=== PATIENT | female | born 1950 | race Caucasian/White ===

== ENCOUNTER 2020-03-12 20:34 | Emergency (ER) | payer BC, OTHER ==
[2020-03-12 20:47] VITALS: PULSE 51; RESP 18; TEMP 97.9
[2020-03-12] MEDS ORDERED: DIPH,PERTUS(ACELL)TETVAC-LF 0.5 ML VIAL IM ONE (21:09)
--- NOTE | 2020-03-12 21:39 | ED ---
Wound/Laceration HPI - General Chief Complaint: Wound/Laceration Stated Complaint: RT foot lac Time Seen by Provider: 03/12/20 21:02 Source: patient, RN notes reviewed, old records reviewed Mode of arrival: ambulatory Limitations: no limitations - History of Present Illness Initial Comments: 7-year-old female presents return today with a laceration over the right ankle after dropping a yard pruning ramirez on the ankle and foot. Patient reports she needs an updated tetanus vaccine. She reports full range of motion and sensation of the foot and ankle. She denies any other significant complaints. - Related Data Home Medications Medication Instructions Recorded Confirmed Escitalopram [Lexapro] 20 mg PO HS 06/10/16 06/12/16 Multivitamins, Thera [Multivitamin] 1 tab PO DAILY 06/10/16 06/12/16 busPIRone HCl [Buspar] 10 mg PO BID 06/10/16 06/12/16 Bimatoprost [Lumigan .01% Ophth 1 drop BOTH EYES DAILY 06/12/16 06/12/16 Soln] Allergies Allergy/AdvReac Type Severity Reaction Status Date / Time Penicillins Allergy Rash/Hives Verified 03/12/20 20:49 Review of Systems ROS Statement: Those systems with pertinent positive or pertinent negative responses have been documented in the HPI. ROS Other: All systems not noted in ROS Statement are negative. Past Medical History Additional Past Medical History / Comment(s): migraines, constipation History of Any Multi-Drug Resistant Organisms: None Reported Past Surgical History: Appendectomy, Tonsillectomy, Tubal Ligation Additional Past Surgical History / Comment(s): skin graft, D&C Past Anesthesia/Blood Transfusion Reactions: Motion Sickness Past Psychological History: Depression Smoking Status: Never smoker Past Alcohol Use History: Occasional Past Drug Use History: None Reported - Past Family History Mother Family Medical History: Cancer General Exam - General Exam Comments Initial Comments: Alert and oriented 69-year-old female. No distress. Limitations: no limitations General appearance: alert, in no apparent distress Head exam: Present: atraumatic, normocephalic, normal inspection Eye exam: Present: normal appearance, PERRL, EOMI. Absent: scleral icterus, conjunctival injection, periorbital swelling ENT exam: Present: normal exam, mucous membranes moist Neck exam: Present: normal inspection Respiratory exam: Present: normal lung sounds bilaterally. Absent: respiratory distress, wheezes, rales, rhonchi, stridor Cardiovascular Exam: Present: regular rate, normal rhythm, normal heart sounds. Absent: systolic murmur, diastolic murmur, rubs, gallop, clicks Right Ankle exam: Present: laceration (superficial 2cm linear laceration over medial right ankle. Bleeding controlled. ). Absent: normal inspection Foot/Toe exam: Present: normal inspection, full ROM Neurovascular tendon exam: Present: no vascular compromise Gait: observed and normal Neurological exam: Present: alert, oriented X3, CN II-XII intact Psychiatric exam: Present: normal affect, normal mood Course Vital Signs 03/12/20 03/12/20 03/12/20 20:42 20:54 21:57 Temperature 97.9 F Pulse Rate 51 L Respiratory 18 Rate Blood Pressure 74/51 107/67 104/62 O2 Sat by Pulse 100 Oximetry Medical Decision Making - Medical Decision Making 61-year-old female presents with a superficial laceration over the medial right ankle after cutting it on pruning ramirez. Patient's laceration is very superficial. It was closed with iodine and closed with 2 micromed wound strips. She was given updated tetanus vaccine. She has full range motion station to the ankle. I discussed monitoring for infection and wound care instruction. . Patient is agreeable treatment plan will comply. Return parameters were discussed. Disposition Clinical Impression: Laceration of ankle Disposition: HOME SELF-CARE Condition: Good Instructions (If sedation given, give patient instructions): Laceration (ED) Additional Instructions: Take off the Micromed strips with tweezers pulling on the an upward motion in approximately 5-7 days. Monitor for any signs of infection including redness swelling or drainage. Is patient prescribed a controlled substance at d/c from ED?: No Referrals: Issac Fraga DO [STAFF PHYSICIAN] - 1-2 days Time of Disposition: 21:39
[2020-03-12 21:57] VITALS: BP 104/62
== END 2020-03-12 21:59 | disposition home or self-care (01) ==
LOC: EC 20:34
DX: S91.011A Laceration without foreign body, right ankle, initial encounter (principal); F32.9 Major depressive disorder, single episode, unspecified; Z79.899 Other long term (current) drug therapy; Z88.0 Allergy status to penicillin; W20.8XXA Other cause of strike by thrown, projected or falling object, initial encounter
CPT/HCPCS: 90471; 90715; 99283

== ENCOUNTER → 2020-11-28 | Outpatient (CLI) | payer MEDICARE, OTHER ==
--- NOTE | 2020-11-28 16:50 | BD ---
EXAMINATION TYPE: Axial Bone Density DATE OF EXAM: 11/28/2020 COMPARISON: 08/08/2016 CLINICAL HISTORY: Postmenopausal screening Height: 64.2 IN Weight: 136 LBS RISK FACTORS HISTORY OF: Active: YES Diet low in dairy products/other sources of calcium: YES Postmenopausal woman: AGE 53 MEDICATIONS: Additional Medications: MULTI VIT, LEXAPRO, ANTIDEPRESSANT, OCUVITE EXAM MEASUREMENTS: Bone mineral densitometry was performed using the [employer] System. Bone mineral density as measured about the Lumbar spine is: ----- L1-L4(G/cm2): 0.947 T Score Values are as follows: ----- L2: -2.8 ----- L3: -1.9 ----- L4: -0.9 ----- L1-L4: -1.9 Bone mineral density has: Increased 0.2% since study of: 08/08/2016 Bone mineral density about the R hip (g/cm2): 0.631 Bone mineral density about the L hip (g/cm2): 0.620 T Score values are as follows: -----R Neck: -2.9 -----L Neck: -3.0 -----R Total: -2.8 -----L Total: -2.8 Bone mineral density has: Decreased -3.3% since study of: 08/08/2016 IMPRESSION: Osteoporosis (T Score less than -2.5). There is increased fracture risk and therapy is usually indicated based on age. Re-Screen 1-2 years. NOTE: T-SCORE=SD OF THE YOUNG ADULT MEAN.
--- NOTE | 2020-11-30 13:49 | MM ---
Reason for exam: screening (asymptomatic). Last mammogram was performed 4 years and 3 months ago. History: Patient is postmenopausal. Took estrogen for 1 year 6 months. Took progesterone for 1 year 6 months. Physical Findings: A clinical breast exam by your physician is recommended on an annual basis and results should be correlated with mammographic findings. MG 3D Screening Mammo W/Cad Bilateral CC and MLO view(s) were taken. Prior study comparison: August 15, 2016, right breast MG 3d work up w/cad RT. August 08, 2016, bilateral MG screening mammo w CAD. There are scattered fibroglandular densities. No significant changes when compared with prior studies. ASSESSMENT: Benign, BI-RAD 2 RECOMMENDATION: Routine screening mammogram of both breasts in 1 year.
== END | disposition home or self-care (01) ==
LOC: RADMAMWWP 13:32
PROVIDERS: ATTEND Family Medicine
DX: Z12.31 Encounter for screening mammogram for malignant neoplasm of breast (principal); M81.0 Age-related osteoporosis without current pathological fracture; Z78.0 Asymptomatic menopausal state
CPT/HCPCS: 77063; 77067; 77080

== ENCOUNTER → 2022-06-13 | Outpatient (CLI) | payer OTHER ==
--- NOTE | 2022-06-14 17:00 | MM ---
Reason for Exam: Screening (asymptomatic). Last mammogram was performed 1 year(s) and 7 month(s) ago. Patient History: Menarche at age 12. First Full-Term at age 16. Postmenopausal. Estrogen for 1 year, 6 months. Progesterone for 1 year, 6 months. Risk Values: Ofe 5 year model risk: 1.4%. NCI Lifetime model risk: 3.8%. Prior Study Comparison: 08/08/2016 Bilateral Screening Mammogram, [facility]. 08/15/2016 Right Diagnostic Mammogram, [facility]. 11/28/2020 Bilateral Screening Mammogram, [facility]. Tissue Density: There are scattered fibroglandular densities. Analyzed By CAD. Overall Assessment: Benign, BI-RAD 2 Management: Screening Mammogram of both breasts in 1 year. Electronically signed and approved by: Chris Cr D.O. Radiologis
== END | disposition home or self-care (01) ==
LOC: RADMAMWWP 12:18
PROVIDERS: ATTEND Family Medicine
DX: Z12.31 Encounter for screening mammogram for malignant neoplasm of breast (principal); Z78.0 Asymptomatic menopausal state
CPT/HCPCS: 77063; 77067

== ENCOUNTER → 2023-04-23 | Outpatient (CLI) | payer OTHER ==
--- NOTE | 2023-04-23 11:29 | CT ---
EXAMINATION TYPE: CT brain wo con DATE OF EXAM: 04/23/2023 COMPARISON: None HISTORY: Pain CT DLP: 2645.48 mGycm Automated exposure control for dose reduction was used. FINDINGS: No evidence of midline shift or mass effect. Ventricles, basal cisterns and sulci overlying next thes e are compatible with the patient's age. No acute hemorrhage. No mass effect. Sella turcica has a normal appearance. Craniocervical junction m aintained. Osseous structures are intact. Orbits are symmetric. Sinuses are clear. Mastoid air cells clear. IMPRESSION: NO ACUTE INTRACRANIAL PROCESS. SYMPTOMS PERSIST CONSIDER MRI.
[2023-04-23 16:18] LABS: HGB 12.4 d/dL (12.0-15.0); MCH 31.6 pg (27.0-32.0); MCHC 32.6 d/dL (32.0-37.0); MCV 96.7 FL (80.0-97.0); Mean Platelet Volume 10.5 FL (9.5-12.2); NRBC Per 100 WBC 0 X 10*3/uL (0.00-0.01); Platelet Count 296 X 10*3/uL (140-440); RBC 3.93 X 10*6/uL (4.10-5.20); RDW 14.6 % (11.5-14.5); WBC 3.27 X 10*3/uL (4.50-10.00)
[2023-04-23 16:40] LABS: BUN/Creat Ratio 24.86 Ratio (12.00-20.00); Blood Urea Nitrogen 17.4 mg/dL (9.0-27.0); Calcium 9.4 mg/dL (8.7-10.3); Carbon Dioxide 25.8 mmol/L (21.6-31.8); Chloride 106 mmol/L (96-109); Glucose 76 mg/dL (70-110); Sodium 140 mmol/L (135-145)
== END | disposition home or self-care (01) ==
LOC: RADCTMAIN 10:37
PROVIDERS: ATTEND Family Medicine
DX: R51.9 Headache, unspecified (principal); R00.2 Palpitations
CPT/HCPCS: 70450; 80048; 85027; 85379

== ENCOUNTER → 2023-05-19 | Outpatient (CLI) | payer OTHER ==
--- NOTE | 2023-05-19 16:39 | CA ---
Transthoracic Echo Report Name: Liliane Barbosa Age: 73 Gender: F : 1950 Exam Date: 05/19/2023 13:31 Exam Location: [facility] [place] Ht (in): 65 Wt (lb): 135 Ordering Physician: Issac Fraga DO Attending/Referring Phys: Hema Campos NPC Gis Programmer Rachel Gomez, DEANNA Procedure CPT: Indications: R00.2 palpitations Cardiac Hx: Technical Quality: Good Contrast 1: Total Dose (mL): Contrast 2: Total Dose (mL): MEASUREMENTS (Male / Female) Normal Values 2D ECHO LV Diastolic Diameter PLAX 4.4 cm 4.2 - 5.9 / 3.9 - 5.3 cm LV Systolic Diameter PLAX 2.8 cm IVS Diastolic Thickness 0.9 cm 0.6 - 1.0 / 0.6 - 0.9 cm LVPW Diastolic Thickness 1.0 cm 0.6 - 1.0 / 0.6 - 0.9 cm LV Relative Wall Thickness 0.4 RV Internal Dim ED PLAX 3.5 cm LA Systolic Diameter LX 3.6 cm 3.0 - 4.0 / 2.7 - 3.8 cm LV Diastolic Volume MOD 4C 84.2 cm??? LV Systolic Volume MOD 4C 33.9 cm??? LV Ejection Fraction MOD 4C 59.8 % LV Cardiac Index MOD 4C 2008.4 cm???/min???m??? LV Diastolic Length 4C 7.2 cm LV Systolic Length 4C 5.5 cm LV Diastolic Volume MOD 2C 73.4 cm??? LV Systolic Volume MOD 2C 25.9 cm??? LV Ejection Fraction MOD 2C 64.8 % LV Cardiac Index MOD 2C 1897.4 cm???/min???m??? LV Diastolic Length 2C 7.2 cm LV Systolic Length 2C 5.7 cm LA Volume 56.3 cm??? 18 - 58 / 22 - 52 cm??? M-MODE Aortic Root Diameter MM 2.7 cm MV E Point Septal Separation 0.2 cm AV Cusp Separation MM 2.0 cm DOPPLER AV Peak Velocity 131.5 cm/s AV Peak Gradient 6.9 mmHg MV Area PHT 3.6 cm??? Mitral E Point Velocity 82.0 cm/s Mitral A Point Velocity 86.3 cm/s Mitral E to A Ratio 1.0 MV Deceleration Time 210.2 ms MV E' Velocity 10.4 cm/s Mitral E to MV E' Ratio 7.9 TR Peak Velocity 240.5 cm/s TR Peak Gradient 23.1 mmHg Right Ventricular Systolic Press 27.9 mmHg FINDINGS Left Ventricle Left ventricular ejection fraction is estimated at 55-60 %. Left ventricular cavity size normal. Right Ventricle Mild right ventricular dilatation. Right ventricular systolic pressure within normal limits. Right Atrium Normal right atrial size. Left Atrium Mildly increased left atrial volume. Mitral Valve Structurally normal mitral valve. Trace mitral regurgitation. Aortic Valve Trileaflet aortic valve. No aortic valve stenosis or regurgitation. Tricuspid Valve Structurally normal tricuspid valve. Mild tricuspid regurgitation. Pulmonic Valve Structurally normal pulmonic valve. No pulmonic regurgitation. Pericardium No pericardial effusion. Aorta Normal size aortic root and proximal ascending aorta. CONCLUSIONS Normal left ventricular ejection fraction 55-60% Mildly dilated left atrium Trace mitral regurgitation Mild tricuspid regurgitation Previewed by: Dr. Butch Cameron DO (Electronically Signed) Final Date: 19 May 2023 16:38
== END | disposition home or self-care (01) ==
LOC: RADECHMAIN 13:18
PROVIDERS: ATTEND Family Medicine
DX: I08.1 Rheumatic disorders of both mitral and tricuspid valves (principal); R00.2 Palpitations
CPT/HCPCS: 93306

== ENCOUNTER → 2024-12-23 | Outpatient (CLI) | payer OTHER ==
--- NOTE | 2024-12-23 10:17 | MM ---
Reason for Exam: Screening (asymptomatic). Last mammogram was performed 2 year(s) and 6 month(s) ago. Patient History: Menarche at age 12. First Full-Term at age 16. Postmenopausal. Estrogen for 1 year, 6 months. Progesterone for 1 year, 6 months. Risk Values: Ofe 5 year model risk: 1.4%. NCI Lifetime model risk: 3.4%. Prior Study Comparison: 08/08/2016 Bilateral Screening Mammogram, [facility]. 08/15/2016 Right Diagnostic Mammogram, [facility]. 11/28/2020 Bilateral Screening Mammogram, [facility]. 06/13/2022 Bilateral MG 3D screening mammo w/cad, [facility]. Tissue Density: There are scattered areas of fibroglandular density. Findings: Analyzed By CAD. There is no suspicious group of microcalcifications or new suspicious mass in either breast. Overall Assessment: Negative, BI-RAD 1 Management: Screening Mammogram of both breasts in 1 year. . Patient should continue monthly self-breast exams. A clinical breast exam by your physician is recommended on an annual basis. This exam should not preclude additional follow-up of suspicious palpable abnormalities. Note on Ofe scores and lifetime risk: 1. A Ofe score greater than 3% is considered moderate risk. If this is the case, consider specialist referral to assess eligibility for a risk reducing agent. 2. If overall lifetime risk for the development of breast cancer is 20% or higher, the patient may qualify for future screening with alternating mammogram and breast MRI. [facility], , 12/23/2024 10:14 AM. Electronically signed and approved by: Juan Patel M.D. Radiologis
== END | disposition home or self-care (01) ==
LOC: RADMAMWWP 09:48
PROVIDERS: ATTEND Family Medicine
DX: Z12.31 Encounter for screening mammogram for malignant neoplasm of breast (principal); R92.323 Mammographic fibroglandular density, bilateral breasts; Z78.0 Asymptomatic menopausal state
CPT/HCPCS: 77063; 77067